=== PATIENT | male | born 1935 | race Caucasian/White ===

== ENCOUNTER 2023-12-18 11:14 | Inpatient (IN) | payer OTHER, BC ==
[2023-12-18] VITALS (11 sets, daily range): BP systolic 117–143; BP diastolic 55–81; PULSE 18–95; RESP 18–20; TEMP 97.2–98.4; O2SAT 92–100
[~2023-12-18] VITALS: Ht 177.8 cm; Wt 72.6 kg
[2023-12-18] MEDS ORDERED: ONDANSETRON 4 MG/2 ML VIAL ONE (12:03)
[2023-12-18 12:05] LABS: BASOPHILS % (AUTO) 0.3 % (0.0-2.0); EOSINOPHILS # (AUTO) 0.1 K/uL (0-0.4); EOSINOPHILS % (AUTO) 0.9 % (0.0-4.0); HEMATOCRIT 41.9 % (36-52); HEMOGLOBIN 14.1 g/dL (12.0-18.0); LYMPHOCYTES # (AUTO) 2.6 K/uL (2.0-11.5); LYMPHOCYTES % (AUTO) 32.4 % (20.5-51.1); MEAN CORPUSCULAR HEMOGLOBIN 32 pg (27-31); MEAN CORPUSCULAR HGB CONC 34 g/dL (33-37); MEAN CORPUSCULAR VOLUME 95.3 fL (80-94); MONOCYTES # (AUTO) 0.8 K/uL (0.8-1.0); MONOCYTES % (AUTO) 9.8 % (1.7-9.3); NEUTROPHILS # (AUTO) 4.6 K/uL (1.8-7.7); NEUTROPHILS % (AUTO) 56.6 % (42.2-75.2); PLATELET COUNT (AUTO) 209 K/uL (140-450); RED CELL DISTRIBUTION WIDTH 14.5 % (11.6-13.7); WHITE BLOOD COUNT (AUTO) 8.1 K/uL (4.8-10.8)
[2023-12-18] MEDS: ONDANSETRON 4 MG/2 ML VIAL IVP ONE (12:05)
[2023-12-18] MEDS: NACL 0.9% 1,000 ML IV ONE (12:06)
[2023-12-18 12:45] LABS: ANION GAP 15.4 (8-16); CALCIUM 8.9 mg/dL (8.5-10.1); CARBON DIOXIDE 22.2 mmol/L (21-32); CHLORIDE 106 mmol/L (98-107); CREATININE 1.2 mg/dL (0.6-1.3); GLUCOSE 126 mg/dL (74-106); POTASSIUM 3.6 mmol/L (3.5-5.1); SODIUM SERUM 140 mmol/L (136-145); UREA NITROGEN, BLOOD 13 mg/dL (7-18)
[2023-12-18 12:54] LABS: ALANINE AMINOTRANSFERASE 22 U/L (12-78); ALBUMIN 3.3 g/dL (3.4-5.0); ALKALINE PHOSPHATASE 85 U/L (50-136); ASPARTATE AMINOTRANSFERASE 22 U/L (15-37); BILIRUBIN,DIRECT 0.2 mg/dL (0.0-0.3); CREATINE KINASE, TOTAL 47 U/L (39-308); TOTAL BILIRUBIN 0.6 mg/dL (0.0-1.0); TOTAL PROTEIN, SERUM 6.6 g/dL (6.4-8.2)
[2023-12-18] MEDS ORDERED: cefTRIAXone 1,000 MG VIAL ONE (13:03)
[2023-12-18 13:14] LABS: INR 1.11 (0.8-1.2); PARTIAL THROMBOPLASTIN TIME 24.5 secs (22-35.6); PROTHROMBIN TIME 11.5 secs (10.8-13.4)
[2023-12-18 13:27] LABS: FLU A ANTIGEN negative (NEGATIVE); FLU B ANTIGEN NEGATIVE (NEGATIVE)
[2023-12-18] MEDS ORDERED: ALBUTEROL SULFATE/IPRATROPIU 3 ML SOL IH PRN (13:55)
[2023-12-18] MEDS ORDERED: ONDANSETRON 4 MG/2 ML VIAL IV PRN (13:55)
[2023-12-18] MEDS ORDERED: ACETAMINOPHEN 325 MG TAB PO PRN (13:55)
[2023-12-18] MEDS ORDERED: HYDROcodone/APAP 7.5/325 MG 1 TAB PO PRN (13:55)
[2023-12-18 14:28] LABS: BLOOD GAS PCO2 32.6 mmHg (35.0-48.0); BLOOD GAS PH 7.415 (7.350-7.450); BLOOD GAS PO2 68.9 mmHg (83.0-108.0)
[2023-12-18 14:29] LABS: BLOOD GAS BASE EXCESS 20.4 mmol/L (-2.0-3.0); BLOOD GAS HCO3 20.4 mmol/L (21.0-28.0); BLOOD GAS O2 SAT% 93.6 % (94.0-98.0)
[2023-12-18] MEDS: ALBUTEROL SULFATE/IPRATROPIU 3 ML SOL IH SCH (15:25)
[2023-12-18] MEDS ORDERED: CLOP300T2 PO (15:32)
[2023-12-18] MEDS ORDERED: DOCU-300 PO (15:32)
[2023-12-18] MEDS ORDERED: MELA1TAB32 PO (15:32)
[2023-12-18] MEDS ORDERED: DRON400T5 PO (15:32)
[2023-12-18] MEDS ORDERED: KEP500 PO (15:32)
[2023-12-18] MEDS ORDERED: METO50TA20 PO (15:32)
[2023-12-18] MEDS ORDERED: FAMO-90 PO (15:32)
[2023-12-18] MEDS ORDERED: MECL-303 PO (15:32)
[2023-12-18] MEDS ORDERED: ROSU40TA PO (15:32)
[2023-12-18] MEDS ORDERED: [UNRECOGNIZED DRUG - CODE] PO (15:32)
[2023-12-18] MEDS ORDERED: ALBUTEROL SULFATE/IPRATROPIU 3 ML SOL IH SCH (16:00)
[2023-12-18 19:16] LABS: APPEARANCE,URINE CLEAR (CLEAR); BILIRUBIN,URINE NEGATIVE (NEGATIVE); BLOOD, URINE NEGATIVE (NEGATIVE); COLOR,URINE YELLOW (YELLOW); LEUKOCYTE ESTERASE ,URINE NEGATIVE (NEGATIVE); NITRITE, URINE NEGATIVE (NEGATIVE); PROTEIN,URINE NEGATIVE (NEGATIVE); UGLUCOSE NEGATIVE (NEGATIVE); UROBILINOGEN,URINE 0.2 EU/dL (0.2 - 1)
[2023-12-18 19:41] LABS: AMPHETAMINE, URINE POSITIVE ng/ml (NEG <=1000); BARBITURATE, URINE NEGATIVE ng/ml (NEG <=200); BENZODIAZEPINE, URINE NEGATIVE ng/mL (NEG <=200); CANNABINOID, URINE NEGATIVE ng/mL (NEG <=50); COCAINE, URINE NEGATIVE ng/mL (NEG <=300); PHENCYCLIDINE SCREEN,URINE NEGATIVE ng/mL (NEG <=25)
[2023-12-18 19:42] LABS: OPIATE, URINE NEGATIVE ng/mL (NEG <=2000)
[2023-12-18] MEDS ORDERED: MELATONIN 3 MG TAB PO PRN (20:50)
[2023-12-18] MEDS ORDERED: MECLIZINE 25 MG TAB PO PRN (20:50)
[2023-12-18] MEDS: AZITHROMYCIN 500 MG in DEXTROSE 5% 250 ML IV SCH (22:39)
[2023-12-18] MEDS: levETIRAcetam 500 MG TAB PO SCH (22:39)
[2023-12-18] MEDS: HALOPERIDOL IM 5 MG/ML VIAL IM SCH (22:40)
[2023-12-19] VITALS (11 sets, daily range): BP systolic 106–133; BP diastolic 44–60; PULSE 52–95; RESP 16–19; TEMP 97.1–98.4; O2SAT 94–100
[2023-12-19] MEDS: DOCUSATE SODIUM 100 MG GELCAP PO PRN (04:45)
[2023-12-19 05:41] LABS: BASOPHILS % (AUTO) 0.2 % (0.0-2.0); EOSINOPHILS % (AUTO) 0.3 % (0.0-4.0); HEMATOCRIT 41.9 % (36-52); HEMOGLOBIN 13.8 g/dL (12.0-18.0); LYMPHOCYTES % (AUTO) 13.8 % (20.5-51.1); MEAN CORPUSCULAR HEMOGLOBIN 32 pg (27-31); MEAN CORPUSCULAR HGB CONC 33 g/dL (33-37); MEAN CORPUSCULAR VOLUME 96.5 fL (80-94); MONOCYTES # (AUTO) 0.8 K/uL (0.8-1.0); MONOCYTES % (AUTO) 5.5 % (1.7-9.3); NEUTROPHILS # (AUTO) 11.8 K/uL (1.8-7.7); NEUTROPHILS % (AUTO) 80.2 % (42.2-75.2); PLATELET COUNT (AUTO) 170 K/uL (140-450); RED BLOOD CELL COUNT(AUTO) 4.35 MIL/uL (4.20-6.10); RED CELL DISTRIBUTION WIDTH 14.6 % (11.6-13.7); WHITE BLOOD COUNT (AUTO) 14.7 K/uL (4.8-10.8)
[2023-12-19 06:31] LABS: ALANINE AMINOTRANSFERASE 29 U/L (12-78); ALBUMIN 3.1 g/dL (3.4-5.0); ALKALINE PHOSPHATASE 77 U/L (50-136); ANION GAP 15.8 (8-16); ASPARTATE AMINOTRANSFERASE 27 U/L (15-37); CARBON DIOXIDE 23.5 mmol/L (21-32); CHLORIDE 107 mmol/L (98-107); CREATININE 1.2 mg/dL (0.6-1.3); GLUCOSE 96 mg/dL (74-106); MAGNESIUM 1.9 mg/dL (1.8-2.4); PHOSPHORUS 3.3 mg/dL (2.5-4.9); POTASSIUM 4.3 mmol/L (3.5-5.1); SODIUM SERUM 142 mmol/L (136-145); TOTAL BILIRUBIN 0.8 mg/dL (0.0-1.0); TOTAL PROTEIN, SERUM 6.3 g/dL (6.4-8.2); UREA NITROGEN, BLOOD 9 mg/dL (7-18)
[2023-12-19] MEDS: FAMOTIDINE 20 MG TAB PO SCH (08:08)
[2023-12-19] MEDS: CLOPIDOGREL 75 MG TAB PO SCH (08:08)
[2023-12-19] MEDS: ATORVASTATIN 80 MG TAB PO SCH (08:09)
[2023-12-19] MEDS: METOPROLOL SUCCINATE 50 MG TABER PO SCH (08:11)
[2023-12-19] MEDS ORDERED: METOPROLOL SUCCINATE 50 MG TABER PO SCH (09:00)
[2023-12-19 10:55] LABS: LACTIC ACID 2.2 mmol/L (0.4-2.0)
[2023-12-19] MEDS ORDERED: POTASSIUM CHLORIDE 40 MEQ, LIDOCAINE 1% 25 MG in NACL 0.9% 250 ML IV PRN (13:15)
[2023-12-19] MEDS ORDERED: MAG SULF 2000 MG/WATER PREMIX 50 ML IV PRN (13:15)
[2023-12-19] MEDS ORDERED: NACL 0.9% 1,000 ML IV SCH (14:50)
[2023-12-20] VITALS (9 sets, daily range): BP systolic 101–133; BP diastolic 44–57; PULSE 60–69; RESP 16–18; TEMP 97.4–97.8; O2SAT 91–99
[2023-12-20 05:48] LABS: BASOPHILS % (AUTO) 0.3 % (0.0-2.0); EOSINOPHILS # (AUTO) 0.1 K/uL (0-0.4); EOSINOPHILS % (AUTO) 1.8 % (0.0-4.0); HEMATOCRIT 35.1 % (36-52); HEMOGLOBIN 11.8 g/dL (12.0-18.0); LYMPHOCYTES # (AUTO) 1.6 K/uL (2.0-11.5); MEAN CORPUSCULAR HEMOGLOBIN 32 pg (27-31); MEAN CORPUSCULAR HGB CONC 34 g/dL (33-37); MEAN CORPUSCULAR VOLUME 96.1 fL (80-94); MONOCYTES # (AUTO) 0.7 K/uL (0.8-1.0); MONOCYTES % (AUTO) 8.3 % (1.7-9.3); NEUTROPHILS # (AUTO) 5.7 K/uL (1.8-7.7); NEUTROPHILS % (AUTO) 69.6 % (42.2-75.2); PLATELET COUNT (AUTO) 144 K/uL (140-450); RED BLOOD CELL COUNT(AUTO) 3.65 MIL/uL (4.20-6.10); RED CELL DISTRIBUTION WIDTH 14.9 % (11.6-13.7); WHITE BLOOD COUNT (AUTO) 8.2 K/uL (4.8-10.8)
[2023-12-20 06:13] LABS: ALANINE AMINOTRANSFERASE 21 U/L (12-78); ALBUMIN 2.5 g/dL (3.4-5.0); ALKALINE PHOSPHATASE 62 U/L (50-136); ANION GAP 11.2 (8-16); ASPARTATE AMINOTRANSFERASE 23 U/L (15-37); CALCIUM 8.2 mg/dL (8.5-10.1); CARBON DIOXIDE 25.5 mmol/L (21-32); CHLORIDE 109 mmol/L (98-107); GLUCOSE 77 mg/dL (74-106); MAGNESIUM 1.8 mg/dL (1.8-2.4); PHOSPHORUS 3.1 mg/dL (2.5-4.9); POTASSIUM 3.7 mmol/L (3.5-5.1); SODIUM SERUM 142 mmol/L (136-145); TOTAL BILIRUBIN 0.5 mg/dL (0.0-1.0); TOTAL PROTEIN, SERUM 5.3 g/dL (6.4-8.2); UREA NITROGEN, BLOOD 12 mg/dL (7-18)
[2023-12-20 10:11] LABS: LACTIC ACID 1.6 mmol/L (0.4-2.0)
[2023-12-20] MEDS ORDERED: DRONEDARONE HCL PO PRN (10:35)
[2023-12-20] MEDS ORDERED: DRONEDARONE HCL PO SCH (10:40)
[2023-12-20] MEDS: MEXILETINE 150MG CAP PO SCH (11:32)
[2023-12-20] MEDS: MULTAQ 400 MG PO SCH (11:32)
[2023-12-20] MEDS ORDERED: AMOX1TER15 PO (12:12)
[2023-12-20] MEDS ORDERED: AZIT250T11 PO (12:12)
[2023-12-20] MEDS ORDERED: ALBUTEROL SULFATE/IPRATROPIU 3 ML SOL IH SCH (19:00)
[2023-12-20] MEDS ORDERED: MEXILETINE HCL PO SCH (21:00)
== END 2023-12-20 18:25 | DRG 871 ==
LOC: MED 11:14 → MTU 14:03
PROVIDERS: ADMIT Student in an Organized Health Care Education/Training Program; ATTEND Student in an Organized Health Care Education/Training Program
DX: A41.50 Gram-negative sepsis, unspecified (principal); G93.41 Metabolic encephalopathy; J15.69 Pneumonia due to other Gram-negative bacteria; J96.01 Acute respiratory failure with hypoxia; I50.43 Acute on chronic combined systolic (congestive) and diastolic (congestive) heart failure; G40.89 Other seizures; I47.20 Ventricular tachycardia, unspecified; E44.0 Moderate protein-calorie malnutrition; I11.0 Hypertensive heart disease with heart failure; R65.20 Severe sepsis without septic shock; E78.5 Hyperlipidemia, unspecified; Z20.822 Contact with and (suspected) exposure to COVID-19; I34.1 Nonrheumatic mitral (valve) prolapse; K21.9 Gastro-esophageal reflux disease without esophagitis; Z86.73 Personal history of transient ischemic attack (TIA), and cerebral infarction without residual deficits; Z79.899 Other long term (current) drug therapy; Z88.8 Allergy status to other drugs, medicaments and biological substances; Z68.23 Body mass index [BMI] 23.0-23.9, adult
CPT/HCPCS: 36415; 70450; 71045; 80048; 80053; 80076; 80305; 81003; 82140; 82550; 82948; 83036; 83605; 83735; 83880; 84100; 84443; 84484; 85025; 85610; 85730; 87040; 87081; 87086; 92526; 93005; 94640; 96361; 96365; 96375; 97110; 97112; 97163-GP; 97530; 99291; J0456; J0696; J1630; J2405; J7060

== ENCOUNTER 2023-12-30 15:36 | Inpatient (IN) | payer OTHER, BC ==
[~2023-12-30] VITALS: Ht 177.8 cm; Wt 70.3 kg
[~2023-12-30 15:36] MED LIST: AMOX1TER15 PO; AZIT250T11 PO; CLOP300T2 PO; DOCU-300 PO; DRON400T5 PO; FAMO-90 PO; KEP500 PO; MECL-303 PO; MELA1TAB32 PO; METO50TA20 PO; ROSU40TA PO; [UNRECOGNIZED DRUG - CODE] PO
[2023-12-30 15:40] VITALS: BP 120/70; PULSE 90; RESP 20; TEMP 97.6; O2SAT 96
[2023-12-30 16:22] LABS: BASOPHILS % (AUTO) 0.4 % (0.0-2.0); EOSINOPHILS # (AUTO) 0.1 K/uL (0-0.4); EOSINOPHILS % (AUTO) 0.8 % (0.0-4.0); HEMATOCRIT 37.6 % (36-52); HEMOGLOBIN 12.3 g/dL (12.0-18.0); LYMPHOCYTES # (AUTO) 1.4 K/uL (2.0-11.5); LYMPHOCYTES % (AUTO) 20.2 % (20.5-51.1); MEAN CORPUSCULAR HEMOGLOBIN 31 pg (27-31); MEAN CORPUSCULAR HGB CONC 33 g/dL (33-37); MEAN CORPUSCULAR VOLUME 96.2 fL (80-94); MONOCYTES # (AUTO) 0.7 K/uL (0.8-1.0); MONOCYTES % (AUTO) 9.3 % (1.7-9.3); NEUTROPHILS # (AUTO) 4.9 K/uL (1.8-7.7); NEUTROPHILS % (AUTO) 69.3 % (42.2-75.2); PLATELET COUNT (AUTO) 249 K/uL (140-450); RED BLOOD CELL COUNT(AUTO) 3.91 MIL/uL (4.20-6.10); RED CELL DISTRIBUTION WIDTH 14.8 % (11.6-13.7); WHITE BLOOD COUNT (AUTO) 7.1 K/uL (4.8-10.8)
[2023-12-30 16:37] LABS: APPEARANCE,URINE CLEAR (CLEAR); BILIRUBIN,URINE NEGATIVE (NEGATIVE); BLOOD, URINE NEGATIVE (NEGATIVE); COLOR,URINE YELLOW (YELLOW); LEUKOCYTE ESTERASE ,URINE NEGATIVE (NEGATIVE); NITRITE, URINE NEGATIVE (NEGATIVE); PROTEIN,URINE NEGATIVE (NEGATIVE); UGLUCOSE NEGATIVE (NEGATIVE); UROBILINOGEN,URINE 0.2 EU/dL (0.2 - 1)
[2023-12-30 16:38] LABS: ANION GAP 11.5 (8-16); CALCIUM 8.4 mg/dL (8.5-10.1); CARBON DIOXIDE 25.5 mmol/L (21-32); CHLORIDE 107 mmol/L (98-107); CREATININE 1.1 mg/dL (0.6-1.3); GLUCOSE 124 mg/dL (74-106); SODIUM SERUM 140 mmol/L (136-145); UREA NITROGEN, BLOOD 18 mg/dL (7-18)
[2023-12-30] MEDS ORDERED: ONDANSETRON 4 MG/2 ML VIAL IVP PRN (19:30)
[2023-12-30] MEDS ORDERED: ALBUTEROL 0.083% 2.5 MG/3 ML NEBU INH PRN (19:30)
[2023-12-30] MEDS ORDERED: LORazepam 2 MG/ML VIAL IVP PRN (19:30)
[2023-12-30] MEDS: DEXT 5% /NACL 0.9% 1,000 ML IV SCH (20:21)
[2023-12-30 22:10] VITALS: BP 145/62; PULSE 60; RESP 18; TEMP 97.3; O2SAT 96
[2023-12-30 22:27] LABS: AMPHETAMINE, URINE POSITIVE ng/ml (NEG <=1000); BARBITURATE, URINE NEGATIVE ng/ml (NEG <=200); BENZODIAZEPINE, URINE NEGATIVE ng/mL (NEG <=200); CANNABINOID, URINE POSITIVE ng/mL (NEG <=50); COCAINE, URINE NEGATIVE ng/mL (NEG <=300); OPIATE, URINE NEGATIVE ng/mL (NEG <=2000); PHENCYCLIDINE SCREEN,URINE NEGATIVE ng/mL (NEG <=25)
[2023-12-31] VITALS: PULSE 63
[2023-12-31 04:00] VITALS: BP 110/53; PULSE 60; RESP 18; TEMP 97.4; O2SAT 96
[2023-12-31 08:00] VITALS: BP 119/73; PULSE 60; RESP 20; TEMP 97.5; O2SAT 95; O2SAT 96
[2023-12-31] MEDS ORDERED: NON-FORMULARY ITEM (Rosuvastatin Calcium* (Crestor*) 20 MG) PO PRN (11:10)
[2023-12-31] MEDS ORDERED: DRONEDARONE HCL PO PRN (11:10)
[2023-12-31] MEDS ORDERED: FAMOTIDINE 20 MG TAB PO PRN (11:10)
[2023-12-31 12:00] VITALS: BP 124/70; PULSE 60; RESP 20; TEMP 97.7; O2SAT 94
[2023-12-31 16:00] VITALS: BP 122/64; PULSE 59; PULSE 60; RESP 20; TEMP 97.6; O2SAT 97
[2023-12-31 20:00] VITALS: BP_SYST 110; BP_SYST 119; BP_DIAS 55; BP_DIAS 73; PULSE 60; RESP 18; RESP 20; TEMP 97.3; TEMP 97.5; O2SAT 94; O2SAT 95; O2SAT 96
[2023-12-31] MEDS ORDERED: MEXILETINE HCL PO SCH (21:00)
[2023-12-31] MEDS: levETIRAcetam 500 MG TAB PO SCH (21:00)
[2024-01-01] VITALS: BP 123/64; PULSE 60; RESP 18; TEMP 97; O2SAT 96
[2024-01-01 04:00] VITALS: BP 121/64; PULSE 60; PULSE 65; RESP 19; TEMP 96.5; O2SAT 95
[2024-01-01 05:47] LABS: BASOPHILS % (AUTO) 0.5 % (0.0-2.0); EOSINOPHILS # (AUTO) 0.1 K/uL (0-0.4); EOSINOPHILS % (AUTO) 1.2 % (0.0-4.0); HEMATOCRIT 38.2 % (36-52); HEMOGLOBIN 12.9 g/dL (12.0-18.0); LYMPHOCYTES # (AUTO) 2.2 K/uL (2.0-11.5); LYMPHOCYTES % (AUTO) 29.2 % (20.5-51.1); MEAN CORPUSCULAR HEMOGLOBIN 33 pg (27-31); MEAN CORPUSCULAR HGB CONC 34 g/dL (33-37); MEAN CORPUSCULAR VOLUME 96.2 fL (80-94); MONOCYTES # (AUTO) 0.6 K/uL (0.8-1.0); MONOCYTES % (AUTO) 8.5 % (1.7-9.3); NEUTROPHILS # (AUTO) 4.5 K/uL (1.8-7.7); NEUTROPHILS % (AUTO) 60.6 % (42.2-75.2); PLATELET COUNT (AUTO) 239 K/uL (140-450); RED BLOOD CELL COUNT(AUTO) 3.97 MIL/uL (4.20-6.10); RED CELL DISTRIBUTION WIDTH 14.8 % (11.6-13.7); WHITE BLOOD COUNT (AUTO) 7.5 K/uL (4.8-10.8)
[2024-01-01 05:54] LABS: ANION GAP 12.5 (8-16); CALCIUM 8.8 mg/dL (8.5-10.1); CARBON DIOXIDE 26.3 mmol/L (21-32); CHLORIDE 108 mmol/L (98-107); GLUCOSE 81 mg/dL (74-106); POTASSIUM 3.8 mmol/L (3.5-5.1); SODIUM SERUM 143 mmol/L (136-145); UREA NITROGEN, BLOOD 15 mg/dL (7-18)
[2024-01-01 08:00] VITALS: BP 112/52; PULSE 59; PULSE 62; RESP 16; RESP 20; TEMP 97.8; O2SAT 96; O2SAT 97
[2024-01-01] MEDS: METOPROLOL SUCCINATE 50 MG TABER PO SCH (08:53)
[2024-01-01] MEDS: CLOPIDOGREL 75 MG TAB PO SCH (08:53)
[2024-01-01] MEDS: MECLIZINE 25 MG TAB PO SCH (08:53)
[2024-01-01] MEDS ORDERED: DRONEDARONE HCL PO (09:28)
[2024-01-01] MEDS ORDERED: ROSUVASTATIN CALCIUM PO (09:28)
[2024-01-01] MEDS ORDERED: KEP500 PO (09:28)
[2024-01-01] MEDS ORDERED: MECL-231 PO (09:28)
[2024-01-01] MEDS ORDERED: CLOP75TA55 PO (09:28)
[2024-01-01] MEDS ORDERED: METO50TE2 PO (09:28)
[2024-01-01] MEDS ORDERED: FAMO20TA13 PO (09:28)
[2024-01-01] MEDS ORDERED: MEXILETINE HCL PO (09:28)
[2024-01-01 12:00] VITALS: BP 118/48; PULSE 59; PULSE 78; RESP 16; TEMP 97.4; O2SAT 96
== END 2024-01-01 15:30 | disposition home or self-care (01) | DRG 57 ==
LOC: MED 15:36 → MTU 19:30
PROVIDERS: ADMIT Student in an Organized Health Care Education/Training Program; ATTEND Student in an Organized Health Care Education/Training Program
DX: I69.322 Dysarthria following cerebral infarction (principal); I50.32 Chronic diastolic (congestive) heart failure; I11.0 Hypertensive heart disease with heart failure; F15.10 Other stimulant abuse, uncomplicated; I49.5 Sick sinus syndrome; I25.10 Atherosclerotic heart disease of native coronary artery without angina pectoris; Z88.8 Allergy status to other drugs, medicaments and biological substances; Z95.0 Presence of cardiac pacemaker; Z79.899 Other long term (current) drug therapy; Z79.51 Long term (current) use of inhaled steroids; R41.82 Altered mental status, unspecified
CPT/HCPCS: 36415; 70450; 71045; 80048; 80305; 81003; 82140; 84484; 85025; 87081; 92526; 93005; 97116; 97163-GP; 99285; J8597; Q0092